=== PATIENT | female | born 1950 | race Caucasian/White ===

== ENCOUNTER 2020-07-09 20:23 | Emergency (ER) | payer MEDICARE ==
--- NOTE | 2020-07-09 20:51 | ERPHSYRPT ---
- History of Present Illness Source: patient Exam Limitations: other (Poor historian) Patient Subjective Stated Complaint: pt stepped on a piece of glass, glass stuck in foot Triage Nursing Assessment: pt stepped on a piece of glass at home, glass stuck in foot. This RN assisted pt out of car, to wheelchair. Physician History: 69 yo wf w glass in L foot at approx 17:00. Pt states that she is up to date on her tetanus. Glasse easily removed from lateral aspect of foot upon arrival. Method of Injury: other (FB L foot) Occurred: other (17:00) Quality: constant Severity of Pain-Max: moderate Severity of Pain-Current: moderate Lower Extremities Pain: foot: left Modifying Factors: Improves With: movement Associated Symptoms: No unable to bear weight Allergies/Adverse Reactions: diazepam [From Valium] Allergy (Verified 07/09/20 20:39) Penicillins Allergy (Verified 07/09/20 20:39) Hx Tetanus, Diphtheria Vaccination/Date Given: Yes Hx Influenza Vaccination/Date Given: No Hx Pneumococcal Vaccination/Date Given: Yes Immunizations Up to Date: Yes Travel Risk - International Travel Have you traveled outside of the country in past 3 weeks: No - Coronavirus Screening Are you exhibiting any of the following symptoms?: No Close contact with a COVID-19 positive Pt in past 14-21 Days: No - Review of Systems Constitutional: No Symptoms Eyes: No Symptoms Ears, Nose, & Throat: No Symptoms Respiratory: No Symptoms Cardiac: No Symptoms Abdominal/Gastrointestinal: No Symptoms Genitourinary Symptoms: No Symptoms Skin: No Symptoms Neurological: No Symptoms Psychological: No Symptoms Endocrine: No Symptoms Hematologic/Lymphatic: No Symptoms Immunological/Allergic: No Symptoms - Past Medical History Pertinent Past Medical History: Yes Neurological History: Stroke ENT History: Cataracts Cardiac History: High Cholesterol, Hypertension, Myocardial Infarction ([place]) Respiratory History: No Pertinent History Endocrine Medical History: Diabetes Type II Musculoskeletal History: Arthritis, Fractures GI Medical History: Gallbladder Disease History: No Pertinent History Psycho-Social History: Anxiety Female Reproductive Disorders: No Pertinent History - Past Surgical History Past Surgical History: Yes Neuro Surgical History: No Pertinent History Cardiac: Cardiac Catheterization Respiratory: No Pertinent History Gastrointestinal: Appendectomy, Cholecystectomy Musculoskeletal: Orthopedic Surgery Female Surgical History: Hysterectomy Other Surgical History: sinus surgery - Social History Smoking Status: Never smoker Exposure to second hand smoke: Yes Drug Use: none Patient Lives Alone: No Significant Family History: no pertinent family hx - Female History Hx Now: No - Nursing Vital Signs Nursing Vital Signs: Initial Vital Signs Temperature 98.2 F 07/09/20 20:28 Pulse Rate 76 07/09/20 20:28 Respiratory Rate 24 07/09/20 20:28 Blood Pressure 197/134 07/09/20 20:28 O2 Sat by Pulse Oximetry 97 07/09/20 20:28 Pain Scale Pain Intensity 4 - Physical Exam General Appearance: no apparent distress Eyes, Ears, Nose, Throat Exam: normal ENT inspection, pharynx normal Neck Exam: normal inspection, non-tender, supple, No Brudzinski, No Kernig's Cardiovascular/Respiratory Exam: normal breath sounds, regular rate/rhythm, heart sounds normal Gastrointestinal/Abdominal Exam: non-tender Back Exam: normal inspection Hips Exam: bilateral: non-tender, normal inspection, normal range of motion Legs Exam: bilateral leg: non-tender, normal inspection, normal range of motion, no evidence of injury Knees Exam: bilateral knee: non-tender, normal inspection, normal range of motion Ankle Exam: bilateral ankle: non-tender, normal inspection, normal range of motion Foot Exam: left foot: other (FB(glass) extracted from lateral aspect of L foot/No comps/NVI) Neuro/Tendon Exam: normal sensation, normal motor functions, normal tendon functions, responds to pain, no evidence tendon injury, No motor deficit, No sensory deficit Mental Status Exam: alert, oriented x 3, cooperative, agitated Skin Exam: normal color, warm, dry, No rash SpO2 Interpretation: normal SpO2: 97 O2 Delivery: Room Air - Course Nursing assessment & vital signs reviewed: Yes - Radiology Exams Foot X-ray Interpretation: Interpreted by me (Questionable retained FB/foot cleaned and XR repeated wo evidence of FB) Ordered Tests: Active Orders 24 hr Category Date Time Status Wound Care STAT Care 07/09/20 21:51 Completed FOOT (2 VIEWS) Stat Exams 07/09/20 21:38 Taken FOOT (MINIMUM 3 VIEWS) Stat Exams 07/09/20 20:56 Taken Medication Summary Discontinued Medications Generic Name Dose Route Start Last Admin Trade Name Freq PRN Reason Stop Dose Admin Hydrocodone Bitart/Acetaminophen 1 tab 07/09/20 21:40 07/09/20 21:43 Roselle 10/325 Mg Tablet PO 07/09/20 21:41 1 tab STAT ONE Administration Hydrocodone Bitart/Acetaminophen Confirm 07/09/20 21:42 Roselle 10/325 Mg Tablet Administered 07/09/20 21:43 Dose 1 tab .ROUTE .STK-MED ONE Lidocaine HCl Confirm 07/09/20 21:02 Xylocaine 1% Hcl 20 Ml Mdv Administered 07/09/20 21:03 Dose 5 ml .ROUTE .STK-MED ONE Lidocaine HCl 5 ml 07/09/20 21:52 07/09/20 21:52 Xylocaine 1% Hcl 20 Ml Mdv IJ 07/09/20 21:53 5 ml STAT ONE Administration - Progress Progress: improved Progress Note: 07/09/20 21:36 Large piece of glass removed from lateral aspect of L foot immediately wo comps/XR w possible retained glass at site/Foot cleaned and superficial glass removed/Repeat XR wo evidence of retained FB Counseled pt/family regarding: need for follow-up, rad results - Departure Departure Disposition: Home Clinical Impression: Foreign body removal left foot Condition: Stable Critical Care Time: No Referrals: Lynda Ellison MD [Primary Care Provider] - Instructions: Foreign Body in Skin (DC) Additional Instructions: Wash foot twice a day with soap/water Start doxycycline twice a day Pain meds as needed Watch for signs of infection-redness/pain/pus/temperature greater than 100.5 Prescriptions: Doxycycline Monohydrate 100 mg PO BID #14 tablet Hydrocodone Bit/Acetaminophen [Roselle 10-325 Tablet] 1 each PO Q4-6HPRN PRN #6 tablet PRN Reason: Pain
[2020-07-09] MEDS ORDERED: XYLOCAINE 1% HCL 20 ML MDV ONE (21:02)
[2020-07-09] MEDS ORDERED: Norco 10/325 MG Tablet ONE (21:42)
[2020-07-09] MEDS: Norco 10/325 MG Tablet PO ONE (21:43)
[2020-07-09 21:46] VITALS: BP 200/106; PULSE 96
[2020-07-09] MEDS: XYLOCAINE 1% HCL 20 ML MDV IJ ONE (21:52)
[2020-07-10 02:34] VITALS: O2SAT 97
--- NOTE | 2020-07-10 08:57 | XRAY ---
Indication: Stepped on glass. Laceration. Comparison: None 3 nonweightbearing views right foot demonstrates several scattered punctate radiopacities presumed cutaneous, anterior lateral forefoot soft tissue swelling, osteopenia, and heel spurs. No other bony, articular, or soft tissue abnormalities.
--- NOTE | 2020-07-10 08:59 | XRAY ---
Indication: Repeat exam following glass/foreign-body removal. Comparison: Taken earlier in the day. 2 nonweightbearing views right foot demonstrates stable anterior lateral forefoot soft tissue swelling, osteopenia, and heel spurs. Previous scattered punctate radiopacities are now absent. No other bony, articular, or soft tissue abnormalities.
== END 2020-07-09 22:07 | disposition home or self-care (01) ==
LOC: ED 20:23
DX: S90.852A Superficial foreign body, left foot, initial encounter (principal)
CPT/HCPCS: 73620; 73630; 96372; 99284; A9270-GY